=== PATIENT | female | born 1935 | race Two or more races ===

== ENCOUNTER 2016-09-10 06:30 | Inpatient (IN) | payer MEDICARE, OTHER ==
[~2016-09-10] VITALS: Ht 157.5 cm; Wt 63.5 kg
[2016-09-10] VITALS (17 sets, daily range): BP systolic 78–184; BP diastolic 40–117
--- NOTE | 2016-09-10 06:35 | NUR ---
TO BED 5 A 80 FEMALE BB RA FROM [facility] FOR SOB. PT ARRIVED ON 100% NON-REBREATHER. PATIENT NOTED WITH LABORED BREATHING, UNABLE TO VERBALIZE FULL SENTENCES. KEPT HOB ELEVATED. AFIB ON THE MONITOR. VS MONITORING. GOWNED. INITIATED COMFORT MEASURES. AWAITING FOR ER MD HUNT.
--- NOTE | 2016-09-10 06:36 | NUR ---
patient placed on bipap 15/5 rate 12, fio2 40%, everett well with o2 saturation at 98%.
[2016-09-10] MEDS ORDERED: NITROGLYCERIN PACKET 1 GM PACKET TD ONE (07:00)
--- NOTE | 2016-09-10 07:00 | NUR ---
started a saline lock on the right hand g20, blood drawn and sent to lab.
[2016-09-10] MEDS ORDERED: NITROGLYCERIN PACKET 1 GM PACKET ONE (07:01)
[2016-09-10 07:11] LABS: BASOPHILS % (AUTO) 0.3 % (0.0-2.0); EOSINOPHILS # (AUTO) 0.2 /CMM (0.0-0.7); EOSINOPHILS % (AUTO) 2.5 % (0.0-6.0); HEMATOCRIT 37 % (33-45); HEMOGLOBIN 11.9 g/dL (11.5-14.8); LYMPHOCYTES # (AUTO) 1.1 /CMM (0.8-4.8); LYMPHOCYTES % (AUTO) 13.4 % (20.0-44.0); MEAN CORPUSCULAR HEMOGLOBIN 25 PG (26.0-33.0); MEAN CORPUSCULAR HGB CONC 32 g/dl (31.0-36.0); MEAN CORPUSCULAR VOLUME 79 fL (82-100); MONOCYTES # (AUTO) 0.5 /CMM (0.1-1.30); MONOCYTES % (AUTO) 6.2 % (2.0-12.0); NEUTROPHILS # (AUTO) 6.2 /CMM (1.8-8.9); NEUTROPHILS % (AUTO) 77.6 % (43.0-81.0); PLATELET COUNT (AUTO) 282 /CMM (150-450); RDW COEFFICIENT OF VARIATION 21.2 (11.5-15.0); RED BLOOD CELL COUNT(AUTO) 4.68 MIL/uL (4.0-5.2)
--- NOTE | 2016-09-10 07:14 | NUR ---
REPORT GIVEN TO ANISHA GUAMAN FOR MIKEY.
[2016-09-10 07:28] LABS: INR 1.05 (0.87-1.13); PROTHROMBIN TIME 11.3 SECS (9.5-12.7)
[2016-09-10 07:34] LABS: TROPONIN I < 0.017 ng/mL (0.00-0.056)
[2016-09-10 07:41] LABS: ALANINE AMINOTRANSFERASE 20 U/L (12-78); ALBUMIN 3.5 g/dL (3.4-5.0); ALKALINE PHOSPHATASE 89 U/L (46-116); ASPARTATE AMINOTRANSFERASE 27 U/L (15-37); B-TYPE NATRIURETIC PEPTIDE 8640 PG/ML (0-125); BILIRUBIN,DIRECT 0.1 mg/dL (0.0-0.2); BILIRUBIN,TOTAL 0.8 mg/dL (0.2-1.0); CALCIUM, SERUM 9.3 mg/dL (8.5-10.1); CARBON DIOXIDE 22 mmol/L (21-32); CHLORIDE 107 mmol/L (98-107); CREATININE 0.7 mg/dL (0.6-1.3); GLUCOSE 97 mg/dL (74-106); POTASSIUM 4.4 mmol/L (3.5-5.1); SODIUM SERUM 142 mmol/L (136-145); TOTAL PROTEIN, SERUM 8.1 g/dL (6.4-8.2); UREA NITROGEN, BLOOD 25 mg/dL (7-18)
[2016-09-10] MEDS ORDERED: NA P133E RC (07:59)
[2016-09-10] MEDS ORDERED: APIX5TAB PO (07:59)
[2016-09-10] MEDS ORDERED: PANT40TA2 PO (07:59)
[2016-09-10] MEDS ORDERED: INSU3INS6 SQ (07:59)
[2016-09-10] MEDS ORDERED: INSU100I14 SQ (07:59)
[2016-09-10] MEDS ORDERED: VIT1CAPS32 PO (07:59)
[2016-09-10] MEDS ORDERED: ACET-868 PO (07:59)
[2016-09-10] MEDS ORDERED: OMEG1CAP PO (07:59)
[2016-09-10] MEDS ORDERED: LEVA1.25 NEB (07:59)
[2016-09-10] MEDS ORDERED: MEGE400O PO (07:59)
[2016-09-10] MEDS ORDERED: METO25TA6 PO (07:59)
[2016-09-10] MEDS ORDERED: BISA10SU8 RC (07:59)
[2016-09-10] MEDS ORDERED: HYDR-552 PO (07:59)
[2016-09-10] MEDS ORDERED: ATOR40TA PO (07:59)
[2016-09-10] MEDS ORDERED: MEMA10TA PO (07:59)
[2016-09-10] MEDS ORDERED: ZOLP5TAB2 PO (07:59)
[2016-09-10] MEDS ORDERED: IPRA0.2S49 NEB (07:59)
[2016-09-10] MEDS ORDERED: MAGN400O6 PO (07:59)
[2016-09-10 08:00] LABS: ABG BASE EXCESS -5.5 mmol/L; ABG OXYGEN SATURATION 97.4 % (92.0-98.5); ABG PH 7.366 (7.350-7.450); ABG PO2 111.5 mmHg (75.0-100.0); AaDO2 134.6 mmHg; COHb 0.8 % (0.5-1.5); MetHb 0.5 % (0.0-1.5); O2Hb 96.1 % (94.0-97.0); SITE, ABG Left Radial; VENT MODE, BG ST 15/5 BUR 12
[2016-09-10] MEDS ORDERED: FUROSEMIDE 20 MG/2 ML VIAL IV ONE (08:00)
[2016-09-10] MEDS ORDERED: FUROSEMIDE 20 MG/2 ML VIAL ONE (08:17)
--- NOTE | 2016-09-10 08:33 | NUR ---
PAGED DR. HERNANDEZ FOR ADMISSION
--- NOTE | 2016-09-10 08:52 | NUR ---
[employer] salesperson - Juan KANG- called - paged again for admission
--- NOTE | 2016-09-10 09:00 | NUR ---
REPORT GIVEN TO GABBY GUAMAN FOR ROOM 259
--- NOTE | 2016-09-10 10:20 | NUR ---
DR. DAVID HARDEN AT FOR EVAL. WITH VERBAL ORDERS FOR FC. ORDERS CARRIED OUT.
[2016-09-10] MEDS ORDERED: ONDANSETRON HCL/PF 4 MG/2 ML VIAL IVP PRN (11:00)
[2016-09-10] MEDS ORDERED: ACETAMINOPHEN 650 MG/SUPP.RECT RC PRN (11:00)
[2016-09-10] MEDS ORDERED: MORPHINE SULFATE INJ 2 MG/ML DISP.SYRIN IV PRN (11:00)
[2016-09-10] MEDS ORDERED: IPRATROPIUM NEB FS 0.5 MG/2.5 ML AMPUL.NEB NEB PRN (11:00)
[2016-09-10] MEDS ORDERED: ALBUTEROL FS 2.5 MG/0.5 ML VIAL.NEB NEB PRN (11:00)
[2016-09-10] MEDS ORDERED: NITROGLYCERIN 30 GM TUBE TP PRN (11:00)
--- NOTE | 2016-09-10 11:00 | NUR ---
ADMISSION PRINCIPAL CLERK NOTE RCVD PT FROM ER, PT'S TACHYCARDIC, TACHYPNEIC. AWAKE, RESPONDS TO NAME. CURRENTLY ON NON-REBREATHER MASK 10L CHANGED TO 4L NC SATURATION >95%. AFIB ON TELE 130s. MOON IN PLACE DRAINING CLEAR, STRAW COLORED URINE. BILATERAL HAND #20 C/D/I/PATENT. NO S/O INFILTRATION OR PHLEBITIS OBSERVED UPON FLUSHING. PT NPO AT THIS TIME. WILL CONTINUE TO MONITOR FOR SAFETY AND COMFORT. CALL LIGHT WITHIN REACH. BED IN LOW AND LOCKED POSITION. BED ALARM IN PLACE. PT CALMING DOWN, STATES THAT SHE WANTS TO GO BACK HOME. PT WAS RE-ASSURED AND EXPLAINED REASON FOR ADMISSION IN [place]. PT MORE AWAKE AT THIS TIME, ABLE TO FOLLOW SIMPLE COMMANDS. TOLERATING ICE CHIPS AND APPLE SAUCE WITHOUT COUGHING. WILL CONTINUE TO MONITOR. PT'S FAMILY INFORMED VIA PHONE OF PT'S ADMISSION AND ROOM #.
[2016-09-10] MEDS: METOPROLOL TARTRATE 25 MG TABLET PO SCH ×2 (11:09→17:13)
[2016-09-10 12:12] LABS: ABG BASE EXCESS -1.4 mmol/L; ABG OXYGEN SATURATION 98.4 % (92.0-98.5); ABG PCO2 31.3 mmHg (35.0-45.0); ABG PH 7.459 (7.350-7.450); AaDO2 58.8 mmHg; COHb 1.3 % (0.5-1.5); MetHb 0.4 % (0.0-1.5); O2Hb 96.7 % (94.0-97.0); SITE, ABG Right Radial; VENT MODE, BG N/C
[2016-09-10] MEDS: FUROSEMIDE 40 MG/4 ML VIAL IV SCH ×3 (12:17→23:55)
--- NOTE | 2016-09-10 13:49 | NUR ---
POLYSOM TECH NOTE PT IS CONFUSED, RESTLESS, VITAL SIGNS STABLE TOLERATING O2 VIA NC. PT RE-ORIENTED TO PLACE, TIME AND SITUATION. WILL CONTINUE TO MONITOR. SCDs IN PLACE.
--- NOTE | 2016-09-10 15:16 | NUR ---
GARDEN MACHINERY MECHANIC NOTE PT'S FAMILY AT BEDSIDE UPDATED ON PT'S CONDITION. PT'S SISTER, TARYN AND NIECE TERESA TOOK PT'S JEWELRY AND MONEY HOME WITH THEM. RCVD ELIQUIS 5MG FROM PT'S FAMILY. MEDICATION TAKEN TO PHARMACY FOR DISPENSING. RCVD BY
[2016-09-10] MEDS ORDERED: LORAZEPAM 0.5 MG TABLET PO PRN (17:00)
--- NOTE | 2016-09-10 17:54 | NUR ---
WAD IMPREGNATOR NOTE DR. HERNANDEZ PAGED TWICE DURING SHIFT TO GET ORDER FOR CODE STATUS. PER PT'S FAMILY (TERESA AND TARYN) THERE'S NO POLST/ADVANCE DIRECTIVE MADE BUT THEY STATE PT WISHES NOT TO BE INTUBATED BUT YES TO COMPRESSIONS. BETH, BLENDING LINE ATTENDANT INFORMED. NO CALL BACK FROM DR. HERNANDEZ YET.
[2016-09-10] MEDS: ELIQUIS 5 MG PO SCH (18:15)
--- NOTE | 2016-09-10 18:55 | NUR ---
PUMP HOUSE OPERATOR NOTE PT AWAKE AND ALERT SHOWING NO S/O DISTRESS OR C/O PAIN TOLERATING O2 VIA NC. CONTINUES TO BE AFIB ON TELE. MOON DRAINING PALE YELLOW URINE. IV SITES C/D/I/PATENT. NO S/O INFILTRATION OR PHLEBITIS OBSERVED UPON FLUSHING. TOLERATING CARDIAC DIET WELL. PT'S CARE WILL BE ENDORSED TO MINING AND QUARRYING MACHINERY REPAIRER RN FOR CONTINUITY OF CARE. CALL LIGHT WITHIN REACH. BED IN LOW AND LOCKED POSITION.
--- NOTE | 2016-09-10 20:00 | NUR ---
REGIONAL TRAINING MANAGER. INITIAL ASSESSMENT. RECEIVED THE PT REST ON THE BED. PT IS CONFUSED. OXYGEN 4L VIA NASAL CANNULA. SAT 98%. NO ACUTE DISTRESS NOTED. WEATHERIZATION INSTALLER SHOWING AFIB. FC PATENT. IV RT HAND 20G. SALINE LOCK.HOB ELEVATED. TURN AND REPOSITION Q2H. WILL CONTINUE TO MONITOR VITALS.
[2016-09-10] MEDS ORDERED: ATORVASTATIN 40 MG TABLET PO SCH (22:00)
--- NOTE | 2016-09-10 22:09 | NUR ---
HAIR BOILER, PT C/O HEADACHE MORPHINE GIVEN PER ORDERED.
[2016-09-11] VITALS (17 sets, daily range): BP systolic 88–169; BP diastolic 41–110
--- NOTE | 2016-09-11 02:27 | NUR ---
HYDROGENATION STILL OPERATOR. AM CARE. ORAL CARE, BED BATH GIVEN. LINEN CHANGED. REMAINING SAME OXYGEN 4L VIA NASAL CANNULA. SAT 98%. NO ACUTE DISTRESS NOTED. CITY COMPTROLLER SHOWING AFIB. HOB ELEAVTED. FC PATENT. URINE DRAINING. TURN AND REPOSITION Q2H. WILL CONTINUE TO MONITOR VITALS.
[2016-09-11 04:39] LABS: BASOPHILS % (AUTO) 0.4 % (0.0-2.0); EOSINOPHILS # (AUTO) 0.4 /CMM (0.0-0.7); EOSINOPHILS % (AUTO) 4.9 % (0.0-6.0); HEMATOCRIT 37 % (33-45); LYMPHOCYTES # (AUTO) 1.1 /CMM (0.8-4.8); MEAN CORPUSCULAR HEMOGLOBIN 26 PG (26.0-33.0); MEAN CORPUSCULAR HGB CONC 33 g/dl (31.0-36.0); MEAN CORPUSCULAR VOLUME 79 fL (82-100); MONOCYTES # (AUTO) 0.7 /CMM (0.1-1.30); NEUTROPHILS # (AUTO) 5.2 /CMM (1.8-8.9); NEUTROPHILS % (AUTO) 70.7 % (43.0-81.0); PLATELET COUNT (AUTO) 339 /CMM (150-450); RDW COEFFICIENT OF VARIATION 21.2 (11.5-15.0); RED BLOOD CELL COUNT(AUTO) 4.68 MIL/uL (4.0-5.2); WHITE BLOOD COUNT (AUTO) 7.3 K/uL (4.3-11.0)
[2016-09-11 05:02] LABS: B-TYPE NATRIURETIC PEPTIDE 4815 PG/ML (0-125); CALCIUM, SERUM 9.6 mg/dL (8.5-10.1); CARBON DIOXIDE 27 mmol/L (21-32); CHLORIDE 104 mmol/L (98-107); GLUCOSE 91 mg/dL (74-106); MAGNESIUM 1.7 mg/dL (1.8-2.4); PHOSPHORUS 4.9 mg/dL (2.5-4.9); POTASSIUM 3.2 mmol/L (3.5-5.1); SODIUM SERUM 145 mmol/L (136-145); UREA NITROGEN, BLOOD 28 mg/dL (7-18)
[2016-09-11 05:11] LABS: CHOLESTEROL 157 mg/dL (<200); HDL CHOLESTEROL 27 mg/dL (40-60); LDL 107 mg/dL (0-99); THYROID STIMULATING HORMONE 1.783 uIU/mL (0.358-3.74); TRIGLYCERIDES 89 mg/dL (30-150)
[2016-09-11] MEDS: FUROSEMIDE 40 MG/4 ML VIAL IV SCH ×4 (05:26→15:45)
[2016-09-11] MEDS ORDERED: SECONDARY IV SET 1 EA INFUS.SET MC ONE (07:54)
[2016-09-11] MEDS ORDERED: IV SET PRIMARY PUMP SET 1 EA INFUS.SET MC ONE (08:03)
[2016-09-11] MEDS: Magnesium 1GM/D5W 100ML PREMIX 100 ML IV SCH ×2 (08:03→09:15)
[2016-09-11] MEDS: POTASSIUM CL. PREMIX PERIPHER. 50 ML IV SCH ×5 (08:03→15:45)
[2016-09-11] MEDS: ELIQUIS 5 MG PO SCH ×2 (08:25→17:09)
[2016-09-11] MEDS: PANTOPRAZOLE 40 MG VIAL IV SCH (08:25)
[2016-09-11] MEDS ORDERED: IV NS 0.9% 250 ML IV ONE (10:38)
[2016-09-11] MEDS: DIGOXIN INJ 0.5 MG/2 ML AMPUL IV SCH ×2 (11:41→17:09)
--- NOTE | 2016-09-11 16:53 | NUR ---
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 INFORMED BIG MACHINE CONSULTANT AND PLACED THE PATIENT IN ISOLATION.
[2016-09-11] MEDS ORDERED: ACETAMINOPHEN 325 MG TABLET PO PRN (18:30)
--- NOTE | 2016-09-11 18:59 | NUR ---
SPECIAL TESTER CLOSING NOTES NO SIGNIFICANT CHANGE IN PATIENT CONDITION THROUGHOUT THE SHIFT. NO SOB OR DISTRESS NOTED AT THIS TIME. PATIENT NOTES MILD HEADACHE, TYLENOL GIVEN. HEART RATE IS AFIB 100-110. BED IN A LOW POSITION, CALL LIGHT WITHIN PATIENT REACH. WILL ENDORSE FOR MIKEY.
--- NOTE | 2016-09-11 20:00 | NUR ---
TELE NOTES PT IN BED RESTING WELL. ON OXYGEN AT 4LPM VIA NC WITH NO S/S OF ACUTE RESP. DISTRESS NOTED. LEFT HAND IV ACCESS NOTED, INTACT AND PATENT. MOON CATHETER NOTED , DWELLING WELL WITH YELLOW CLEAR URINE. CLEAN AND DRY. SAFETY PRECAUTION MAINTAINED. WILL CONT TO MONITOR.
[2016-09-11] MEDS: MUPIROCIN OINT 2% 22 GM TUBE TP SCH (21:27)
[2016-09-12] VITALS (7 sets, daily range): BP systolic 119–166; BP diastolic 69–97
[2016-09-12] MEDS: DIGOXIN INJ 0.5 MG/2 ML AMPUL IV SCH (00:34)
--- NOTE | 2016-09-12 06:28 | NUR ---
TELE NOTES PT REMAINS STABLE THROUGHOUT THE SHIFT. NO SOB NOTED. APPEARS COMFORTABLE WITH NO COMPLAINT OF PAIN OR DISCOMFORT. NURSING CARE RENDERED. KEPT CLEAN AND DRY. ALL NEEDS ANTICIPATED.
[2016-09-12 08:08] LABS: BASOPHILS % (AUTO) 0.2 % (0.0-2.0); EOSINOPHILS # (AUTO) 0.3 /CMM (0.0-0.7); EOSINOPHILS % (AUTO) 5.3 % (0.0-6.0); HEMATOCRIT 38 % (33-45); HEMOGLOBIN 12.3 g/dL (11.5-14.8); LYMPHOCYTES # (AUTO) 0.9 /CMM (0.8-4.8); LYMPHOCYTES % (AUTO) 14.1 % (20.0-44.0); MEAN CORPUSCULAR HEMOGLOBIN 26 PG (26.0-33.0); MEAN CORPUSCULAR HGB CONC 33 g/dl (31.0-36.0); MEAN CORPUSCULAR VOLUME 79 fL (82-100); MONOCYTES # (AUTO) 0.6 /CMM (0.1-1.30); MONOCYTES % (AUTO) 9.8 % (2.0-12.0); NEUTROPHILS # (AUTO) 4.4 /CMM (1.8-8.9); NEUTROPHILS % (AUTO) 70.6 % (43.0-81.0); PLATELET COUNT (AUTO) 261 /CMM (150-450); RDW COEFFICIENT OF VARIATION 20.9 (11.5-15.0); RED BLOOD CELL COUNT(AUTO) 4.82 MIL/uL (4.0-5.2); WHITE BLOOD COUNT (AUTO) 6.3 K/uL (4.3-11.0)
[2016-09-12 08:22] LABS: ALANINE AMINOTRANSFERASE 16 U/L (12-78); ALBUMIN 3.4 g/dL (3.4-5.0); ALKALINE PHOSPHATASE 91 U/L (46-116); ASPARTATE AMINOTRANSFERASE 13 U/L (15-37); BILIRUBIN,TOTAL 0.9 mg/dL (0.2-1.0); CALCIUM, SERUM 9.5 mg/dL (8.5-10.1); CARBON DIOXIDE 25 mmol/L (21-32); CHLORIDE 101 mmol/L (98-107); CREATININE 0.8 mg/dL (0.6-1.3); GLUCOSE 87 mg/dL (74-106); MAGNESIUM 2.1 mg/dL (1.8-2.4); PHOSPHORUS 3.6 mg/dL (2.5-4.9); POTASSIUM 3.3 mmol/L (3.5-5.1); SODIUM SERUM 139 mmol/L (136-145); TOTAL PROTEIN, SERUM 7.8 g/dL (6.4-8.2); UREA NITROGEN, BLOOD 32 mg/dL (7-18)
[2016-09-12] MEDS: ELIQUIS 5 MG PO SCH ×2 (09:00→18:26)
[2016-09-12] MEDS: MUPIROCIN OINT 2% 22 GM TUBE TP SCH ×2 (09:00→20:31)
[2016-09-12] MEDS: FUROSEMIDE 40 MG/4 ML VIAL IV SCH ×3 (10:06→18:25)
[2016-09-12] MEDS: PANTOPRAZOLE 40 MG VIAL IV SCH (10:06)
[2016-09-12] MEDS: POTASSIUM CHLORIDE 20 MEQ TAB.PRT.SR PO SCH ×3 (10:06→12:10)
--- NOTE | 2016-09-12 10:51 | NUR ---
JOB TRAINING SPECIALIST NOTES RECEIVED PATIENT IT BED, A/O X2, VERBALLY RESPONSIVE, NO APPARENT DISTRESS, DENIES SOB, DENIES PAIN. IV LINE IN RIGHT HAND PATENT, MOON CATH PATENT, DRAINING YELLOW URINE. ON 2L O2 VIA NC, ON TELE MONITOR SR IN THE 80S. ALL NEEDS MET, KEPT CLEAN AND DRY. Addendum: 09/12/16 at 1059 by DELFINO RADFORD RN [id number] NOTES
[2016-09-12 11:07] LABS: FERRITIN 617 ng/mL (8-388); IRON, SERUM 80 ug/dl (50-175); TOTAL IRON BINDING CAPACITY 366 ug/dl (250-450)
--- NOTE | 2016-09-12 19:30 | NUR ---
MS/RN INITIAL NOTES RECEIVED PATIENT IT BED, A/O X3, VERBALLY RESPONSIVE, NO APPARENT DISTRESS, DENIES SOB, DENIES PAIN. IV LINE IN RIGHT HAND PATENT, MOON CATH PATENT, DRAINING YELLOW URINE. ON 2L O2 VIA NC. WILL CONTINUE TO MONITOR
--- NOTE | 2016-09-12 19:45 | NUR ---
RN MS NOTES PATIENT IN BED, NO APPARENT DISTRESS NOTED, DENIES PAIN DENIES SON. ON 4L O2 VIA NC, SATURATING WELL. ALL DUE MEDS GIVEN, ALL NEEDS MET, KEPT CLEAN AND DRY. WILL ENDORSE CARE TO PM SHIFT.
--- NOTE | 2016-09-12 20:00 | NUR ---
MS OPENING NOTES RECEIVED PT IN BED RESTING WELL. RESPIRATION EVEN AND UNLABORED. ON OXYGEN AT 2LPM VIA NC WITH NO S/S OF ACUTE RESP. DISTRESS NOTED. NO SOB. LEFT HAND IV ACCESS NOTED, INTACT AND PATENT. NO REDNESS/INFILTRATION NOTED. MOON CATHETER GRAVITY DRAINING CLEAR YELLOW URINE. KEPT CLEAN AND DRY. SAFETY PRECAUTION MAINTAINED. WILL CONT TO MONITOR.
--- NOTE | 2016-09-13 06:40 | NUR ---
M/S RN CLOSING NOTES PT REMAINS STABLE THROUGHOUT THE SHIFT. NO SOB NOTED. APPEARS COMFORTABLE WITH NO COMPLAINT OF PAIN OR DISCOMFORT. NURSING CARE RENDERED. KEPT CLEAN AND DRY. ALL NEEDS ANTICIPATED. WILL ENDORSE TO AM SHIFT
--- NOTE | 2016-09-13 07:20 | NUR ---
MS RN OPENING NOTES RECEIVED PT. FROM NIGHTSHIFT NURSE IN STABLE CONDITION, AWAKE AND LYING COMFORTABLY IN BED. PT. IS A/O X2-3. ARABIC SPEAKING ONLY. NO SOB OR SIGNS OF DISTRESS NOTED. PT. DENIES PAIN AT THIS TIME. BREATHING IS EVEN AND UNLABORED. ON 4L NC SATING AT 98%. MOON CATHETER IN PLACE AND INTACT, DRAINING CLEAR, YELLOW URINE TO GRAVITY. IV PRESENT ON RIGHT HAND 22G PATENT AND INTACT. NO REDNESS OR SIGNS OF INFILTRATION NOTED. BED IN LOW LOCKED POSITION, SIDE RAILS UP X2, CALL LIGHT WITHIN REACH. WILL CONTINUE TO MONITOR.
[2016-09-13 07:44] LABS: BASOPHILS % (AUTO) 0.4 % (0.0-2.0); EOSINOPHILS # (AUTO) 0.4 /CMM (0.0-0.7); EOSINOPHILS % (AUTO) 4.8 % (0.0-6.0); HEMATOCRIT 36 % (33-45); HEMOGLOBIN 11.8 g/dL (11.5-14.8); LYMPHOCYTES % (AUTO) 14.1 % (20.0-44.0); MEAN CORPUSCULAR HEMOGLOBIN 26 PG (26.0-33.0); MEAN CORPUSCULAR HGB CONC 32 g/dl (31.0-36.0); MEAN CORPUSCULAR VOLUME 79 fL (82-100); MONOCYTES # (AUTO) 0.6 /CMM (0.1-1.30); MONOCYTES % (AUTO) 8.8 % (2.0-12.0); NEUTROPHILS # (AUTO) 5.2 /CMM (1.8-8.9); NEUTROPHILS % (AUTO) 71.9 % (43.0-81.0); PLATELET COUNT (AUTO) 300 /CMM (150-450); RDW COEFFICIENT OF VARIATION 20.5 (11.5-15.0); RED BLOOD CELL COUNT(AUTO) 4.62 MIL/uL (4.0-5.2); WHITE BLOOD COUNT (AUTO) 7.3 K/uL (4.3-11.0)
[2016-09-13 07:49] LABS: ALANINE AMINOTRANSFERASE 19 U/L (12-78); ALBUMIN 3.4 g/dL (3.4-5.0); ALKALINE PHOSPHATASE 89 U/L (46-116); ASPARTATE AMINOTRANSFERASE 15 U/L (15-37); BILIRUBIN,TOTAL 0.7 mg/dL (0.2-1.0); CALCIUM, SERUM 9.3 mg/dL (8.5-10.1); CARBON DIOXIDE 28 mmol/L (21-32); CHLORIDE 99 mmol/L (98-107); CREATININE 0.7 mg/dL (0.6-1.3); GLUCOSE 100 mg/dL (74-106); MAGNESIUM 1.7 mg/dL (1.8-2.4); PHOSPHORUS 3.1 mg/dL (2.5-4.9); POTASSIUM 3.4 mmol/L (3.5-5.1); SODIUM SERUM 138 mmol/L (136-145); TOTAL PROTEIN, SERUM 7.8 g/dL (6.4-8.2); UREA NITROGEN, BLOOD 31 mg/dL (7-18)
[2016-09-13 08:00] VITALS: BP 155/85
[2016-09-13] MEDS ORDERED: FUROSEMIDE 40 MG TABLET PO SCH (09:00)
[2016-09-13] MEDS: MUPIROCIN OINT 2% 22 GM TUBE TP SCH (09:00)
[2016-09-13] MEDS ORDERED: POTASSIUM CHLORIDE 20 MEQ TAB.PRT.SR PO SCH (09:00)
[2016-09-13] MEDS ORDERED: APIXABAN 5 MG TABLET PO SCH (09:14)
[2016-09-13] MEDS: PANTOPRAZOLE 40 MG VIAL IV SCH (10:17)
[2016-09-13] MEDS ORDERED: IV NS 0.9% 250 ML IV ONE (11:22)
[2016-09-13] MEDS ORDERED: SECONDARY IV SET 1 EA INFUS.SET MC ONE (11:22)
[2016-09-13] MEDS ORDERED: IV SET PRIMARY PUMP SET 1 EA INFUS.SET MC ONE (11:36)
[2016-09-13] MEDS ORDERED: FURO40TA5 PO (11:39)
[2016-09-13] MEDS: Magnesium 1GM/D5W 100ML PREMIX 100 ML IV SCH ×2 (11:41→12:46)
--- NOTE | 2016-09-13 17:23 | NUR ---
MS RN NOTES PT. IS BEING TRANSPORTED FROM [facility] TO [facility] VIA AMBULANCE. REPORT WAS GIVEN TO [place]. SHE WAS SAFELY TRANSFERRED FROM BED TO [facility] IN STABLE CONDITION. ALL NEEDS MET DURING SHIFT AND ORDERS CARRIED OUT ACCORDINGLY.
== END 2016-09-13 17:40 | DRG 291 ==
LOC: ER 06:31 → ICU 08:44 → TELE 09-11 10:20 → MED 09-12 09:58
PROC: 5A09357 Assistance with Respiratory Ventilation, Less than 24 Consecutive Hours, Continuous Positive Airway Pressure (ICD-10-PCS; principal; 2016-09-10)
DX: I13.0 Hypertensive heart and chronic kidney disease with heart failure and stage 1 through stage 4 chronic kidney disease, or unspecified chronic kidney disease (principal); J96.01 Acute respiratory failure with hypoxia; I50.33 Acute on chronic diastolic (congestive) heart failure; D68.59 Other primary thrombophilia; J98.11 Atelectasis; J90 Pleural effusion, not elsewhere classified; N18.9 Chronic kidney disease, unspecified; I48.91 Unspecified atrial fibrillation; M06.9 Rheumatoid arthritis, unspecified; G30.9 Alzheimer's disease, unspecified; F02.80 Dementia in other diseases classified elsewhere, unspecified severity, without behavioral disturbance, psychotic disturbance, mood disturbance, and anxiety; F09 Unspecified mental disorder due to known physiological condition; E11.22 Type 2 diabetes mellitus with diabetic chronic kidney disease; D50.9 Iron deficiency anemia, unspecified; F32.9 Major depressive disorder, single episode, unspecified; R79.89 Other specified abnormal findings of blood chemistry
CPT/HCPCS: 36415; 36600; 71010-TC; 80048-TC; 80053-TC; 80061-TC; 80076-TC; 82728-TC; 83540-TC; 83605-TC; 83735-TC; 83880; 84100-TC; 84443-TC; 84484-TC; 85025-TC; 85730-TC; 87040-TC; 87081-TC; 93307-TC; 94799-TC; 97001-TC; A4606; C9113; J1160; J1940; J2270; J3475; J3480; J7050; Z7610

== ENCOUNTER 2017-02-03 17:45 | Emergency (ER) | payer MEDICARE ==
[~2017-02-03] VITALS: Ht 165.1 cm; Wt 70.3 kg
[~2017-02-03 17:45] MED LIST: ACET-868 PO; APIX5TAB PO; ATOR40TA PO; BISA10SU8 RC; FURO40TA5 PO; HYDR-552 PO; INSU100I14 SQ; INSU3INS6 SQ; IPRA0.2S49 NEB; LEVA1.25 NEB; LORAZEPAM INJ 2 MG/ML VIAL ONE; MAGN400O6 PO; MEGE400O PO; MEMA10TA PO; METO25TA6 PO; NA P133E RC; OMEG1CAP PO; PANT40TA2 PO; VIT1CAPS32 PO; ZOLP5TAB2 PO
[2017-02-03] MEDS ORDERED: ATROPINE SULFATE 1 MG/10 ML DISP.SYRIN IV ONE (17:47)
[2017-02-03] MEDS ORDERED: NORMAL SALINE 10 ML DISP.SYRIN IV ONE (17:47)
[2017-02-03] MEDS ORDERED: EPINEPHRINE (1:10,000) SYRINGE 1 MG/10 ML DISP.SYRIN IVP ONE (17:47)
[2017-02-03] MEDS ORDERED: ROCURONIUM BROMIDE 50 MG/5 ML IV ONE (17:47)
[2017-02-03] MEDS ORDERED: ETOMIDATE 2 MG/ML VIAL IV ONE (17:47)
[2017-02-03 17:48] VITALS: BP 145/83
--- NOTE | 2017-02-03 17:48 | NUR ---
CALLED [facility] TELESTROKE HOTLINE, SPOKE WITH CAR. EXPECTING A CALL BACK FROM DR SCHMIDT.
--- NOTE | 2017-02-03 17:50 | NUR ---
DR SCHMIDT FROM [facility] CALLED , ON THE PHONE WITH DR VILLAGOMEZ.
[2017-02-03] MEDS ORDERED: MIDAZOLAM HCL 2 MG/2ML VIAL ONE ×2 (17:54→18:04)
[2017-02-03] MEDS ORDERED: LEVETIRACETAM (500MG) 500 MG in IV NS 0.9% 100 ML IV SCH (18:00)
[2017-02-03] MEDS ORDERED: LORAZEPAM INJ 2 MG/ML VIAL IM ONE (18:00)
[2017-02-03] MEDS ORDERED: MIDAZOLAM HCL 2 MG/2ML VIAL IV ONE ×2 (18:00→18:30)
[2017-02-03] MEDS ORDERED: PROPOFOL 20 ML IV ONE (18:22)
[2017-02-03] MEDS ORDERED: PROPOFOL 100 ML IV ONE (18:24)
--- NOTE | 2017-02-03 18:25 | NUR ---
PROPOFOL IV NOT STARTED PER DR VILLAGOMEZ, PATIENT IS CODING. SEE MD NOTES.
--- NOTE | 2017-02-03 18:25 | NUR ---
KEPPRA IV NOT GIVEN, PATIENT IS CODING. SEE MD NOTES.
[2017-02-03] MEDS ORDERED: PROPOFOL 100 ML IV PRN (18:30)
--- NOTE | 2017-02-03 18:42 | NUR ---
1842: ATROPIN 0.5 MG IVP 1845: EPI IVP 1848: EPI IVP 1852: EPI IVP 1855: EPI IVP 1900: EPI IVP 1903: EPI IVP 1906: EPI IVP 1909: EPI IVP 1912: EPI IVP 191: EPI IVP 191: ASYSTOLE. STOP RESUSCITATION. PRONOUNCED BY DR VILLAGOMEZ.
--- NOTE | 2017-02-03 18:46 | NUR ---
CALL RECEIVED FROM TELE-STROKE,TOLD THAT PATIENT IS NOT A TPA CANDIDATE SINCE SHE IS ON ELOQUIST PER DR VILLAGOMEZ
--- NOTE | 2017-02-03 19:10 | NUR ---
RT NOTE PT INTUBATED PER MD ORDER. SETTINGS PRESCRIBED. ALARMS SET PER PROTOCOL AND AUDIBLE. 7.0 ETT 21 CM AT LIP. CUFF INFLATED. AMBU BAG AT BED SIDE. VENT PLUGGED IN TO RED OUTLET. Addendum: 02/03/17 at 1911 by JULIO AGOSTO RT Amended: Links added.
--- NOTE | 2017-02-03 19:19 | NUR ---
PATIENT HAS , SEE MD NOTES.
== END 2017-02-03 20:15 | disposition expired ==
LOC: ER 17:46
DX: I46.9 Cardiac arrest, cause unspecified (principal); I21.9 Acute myocardial infarction, unspecified; R51 Headache; K92.2 Gastrointestinal hemorrhage, unspecified; R56.9 Unspecified convulsions; D64.9 Anemia, unspecified; E11.9 Type 2 diabetes mellitus without complications; E78.5 Hyperlipidemia, unspecified; F02.80 Dementia in other diseases classified elsewhere, unspecified severity, without behavioral disturbance, psychotic disturbance, mood disturbance, and anxiety; F32.9 Major depressive disorder, single episode, unspecified; M41.9 Scoliosis, unspecified; G30.9 Alzheimer's disease, unspecified; I10 Essential (primary) hypertension; I48.91 Unspecified atrial fibrillation; K21.9 Gastro-esophageal reflux disease without esophagitis; M06.9 Rheumatoid arthritis, unspecified; Z46.82 Encounter for fitting and adjustment of non-vascular catheter; Z46.59 Encounter for fitting and adjustment of other gastrointestinal appliance and device; Z79.01 Long term (current) use of anticoagulants; Z79.4 Long term (current) use of insulin
CPT/HCPCS: 31500; 51702; 70450; 92950; 93005; 96372; 99291; A4606; J0171; J0461; J1953; J2060; J2250 ×2; J2704; J3490 ×2; J7030; Z7610